=== PATIENT | male | born 2000 | race Caucasian/White ===

== ENCOUNTER → 2019-12-17 | Outpatient (CLI) | payer OTHER ==
--- NOTE | 2019-12-17 11:00 | ECHOF ---
Referral Reason:Q87.40 Marfan's syndrome, unspecified MEASUREMENTS -------- HEIGHT: 195.6 cm WEIGHT: 59.0 kg BP: RVIDd: 2.0 cm (< 3.3) IVSd: 0.7 cm (0.6 - 1.1) LVIDd: 4.3 cm (3.9 - 5.3) LVPWd: 1.0 cm (0.6 - 1.1) IVSs: 1.5 cm LVIDs: 2.7 cm LVPWs: 1.3 cm Ao Diam: 2.8 cm (2.0 - 3.7) AV Cusp: 1.9 cm (1.5 - 2.6) LA Diam: 2.8 cm (2.7 - 3.8) MV EXCURSION: 27.852 mm (> 18.000) MV EF SLOPE: 195 mm/s (70 - 150) EPSS: 0.4 cm MV E Alberto: 0.92 m/s MV DecT: 229 ms MV A Alberto: 0.55 m/s MV E/A Ratio: 1.67 RAP: 5.00 mmHg RVSP: 25.10 mmHg FINDINGS -------- Sinus rhythm. This was a technically good study. The left ventricular size is normal. Left ventricular wall thickness is normal. Overall left vent ricular systolic function is normal with, an EF between 55 - 60 %. The right ventricle is normal in size. The left atrial size is normal. The right atrial size is normal. The aortic valve is trileaflet and appears structurally normal. Mild mitral regurgitation is present. There is mild mitral valve prolapse , predominately a posteri lisa directed jet. The tricuspid valve appears structurally normal. Mild tricuspid regurgitation present. Right vent ricular systolic pressure is normal at < 35 mmHg. There is no pulmonic regurgitation present. The aortic root size is normal. Normal inferior vena cava with normal inspiratory collapse consistent with estimated right atrial pre ssure of 5 mmHg. There is no pericardial effusion. CONCLUSIONS -------- 1. Overall left ventricular systolic function is normal with, an EF between 55 - 60 %. 2. The aortic valve is trileaflet and appears structurally normal. 3. Mild mitral regurgitation is present. 4. There is mild mitral valve prolapse. 5. , predominately a posteriorly directed jet. 6. Mild tricuspid regurgitation present. GRE[employer] CUTTER: Coco Jackman RDCS
== END | disposition home or self-care (01) ==
LOC: RADECHMAIN 09:26
PROVIDERS: ATTEND Nurse Practitioner Family
DX: I08.1 Rheumatic disorders of both mitral and tricuspid valves (principal); Z87.09 Personal history of other diseases of the respiratory system
CPT/HCPCS: 93306